=== PATIENT | female | born 1950 | race Caucasian/White ===

== ENCOUNTER → 2017-09-20 | Outpatient (CLI) | payer MEDICARE ==
[2017-09-20 07:53] LABS: BASO % 0.4 % (0.0-1.0); EOS # 0.1 10*3/uL (0.0-0.4); HEMATOCRIT 38.4 % (37.0-47.0); HEMOGLOBIN 12.7 g/dl (12.0-16.0); LYMPH # 2.1 10*3/uL (1.3-4.4); LYMPH % 42.1 % (27.0-41.0); MEAN CELL VOLUME 96.7 fl (81.0-99.0); MEAN CORPUSCULAR HGB CONC 33.1 g/dl (33.0-37.0); MEAN PLATELET VOLUME 10.5 fl (9.6-12.3); MONO # 0.6 10*3/uL (0.1-1.0); MONO % 12.3 % (3.0-9.0); NEUT # 2.2 10*3/uL (2.3-7.9); PLATELET COUNT AUTOMATED 170 10*3/uL (130-400); RED BLOOD COUNT 3.97 10*6/uL (4.10-5.10)
[2017-09-20 08:26] LABS: ALBUMIN 3.3 gm/dl (3.1-4.5); ALKALINE PHOSPHATASE 84 U/L (45-117); BILIRUBIN, DIRECT < 0.1 mg/dL (0.0-0.2); BUN 25 mg/dl (7-24); CHLORIDE 104 mmol/L (98-107); CHOLESTEROL 195 mg/dL (<200); CREATININE 1.15 mg/dL (0.55-1.02); HDL CHOLESTEROL 75 mg/dl (40-60); LDL CHOLESTEROL 98 mg/dL (9-159); PHOSPHOROUS 3.4 mg/dL (2.5-4.9); POTASSIUM 4.8 mmol/L (3.5-5.1); SGOT/AST 23 IU/L (3-35); SGPT/ALT 26 U/L (12-78); SODIUM 141 mmol/L (136-145); TRIGLYCERIDES 109 mg/dl (<150); VLDL CHOLESTEROL 22 mg/dL (6-40)
== END | disposition home or self-care (01) ==
LOC: LAB 07:13
PROVIDERS: Internal Medicine
DX: J44.9 Chronic obstructive pulmonary disease, unspecified (principal); I10 Essential (primary) hypertension; E78.5 Hyperlipidemia, unspecified

== ENCOUNTER → 2017-10-25 | Outpatient (CLI) | payer MEDICARE ==
[2017-10-25 08:14] LABS: BASO % 0.3 % (0.0-1.0); EOS # 0.1 10*3/uL (0.0-0.4); EOS % 1.9 % (1.0-4.0); HEMATOCRIT 39.4 % (37.0-47.0); LYMPH # 2.1 10*3/uL (1.3-4.4); LYMPH % 30.1 % (27.0-41.0); MEAN CELL VOLUME 96.6 fl (81.0-99.0); MEAN CORPUSCULAR HGB 31.9 pg (27.0-31.0); MEAN PLATELET VOLUME 10.7 fl (9.6-12.3); MONO # 0.9 10*3/uL (0.1-1.0); MONO % 12.9 % (3.0-9.0); NEUT # 3.8 10*3/uL (2.3-7.9); NEUT % 54.5 % (47.0-73.0); PLATELET COUNT AUTOMATED 181 10*3/uL (130-400); RED BLOOD COUNT 4.08 10*6/uL (4.10-5.10); RED CELL DISTRI WIDTH 13.1 % (0-14.5); WHITE BLOOD COUNT 6.9 10*3/uL (4.8-10.8)
[2017-10-25 08:43] LABS: ALBUMIN 3.4 gm/dl (3.1-4.5); ALKALINE PHOSPHATASE 84 U/L (45-117); BILIRUBIN, DIRECT < 0.1 mg/dL (0.0-0.2); BUN 19 mg/dl (7-24); CHLORIDE 104 mmol/L (98-107); CREATININE 1.15 mg/dL (0.55-1.02); FREE T4 0.82 ng/dl (0.76-1.46); PHOSPHOROUS 3.9 mg/dL (2.5-4.9); POTASSIUM 4.2 mmol/L (3.5-5.1); SGOT/AST 20 IU/L (3-35); SGPT/ALT 28 U/L (12-78); SODIUM 141 mmol/L (136-145); TOTAL PROTEIN 7.2 gm/dL (6.4-8.2)
[2017-10-25 12:29] LABS: VITAMIN D, 25-HYDROXY 22.4 ng/mL (30-100)
== END | disposition home or self-care (01) ==
LOC: LAB 07:24
PROVIDERS: Internal Medicine
DX: I48.0 Paroxysmal atrial fibrillation (principal); I10 Essential (primary) hypertension; R73.01 Impaired fasting glucose; M11.262 Other chondrocalcinosis, left knee; E55.9 Vitamin D deficiency, unspecified; Z79.899 Other long term (current) drug therapy

== ENCOUNTER 2018-02-04 17:43 | Emergency (ER) | payer MEDICARE ==
[~2018-02-04] VITALS: Ht 165.1 cm; Wt 63.5 kg
== END 2018-02-04 18:52 | disposition home or self-care (01) ==
LOC: ED 17:43
DX: I97.610 Postprocedural hemorrhage of a circulatory system organ or structure following a cardiac catheterization (principal)

== ENCOUNTER → 2018-06-09 | Outpatient (CLI) | payer MEDICARE ==
--- NOTE | ~2018-06-09 | EKG ---
[place], [place] ELECTROCARDIOGRAM REPORT NAME: JOSAFAT COLÓN UNIT #: [id number] ROOM: DOCTOR: JOSUE DRAFT REPORT BIRTHDATE: [birth year] [facility] Test Date: 2018-06-09 Test Time: 11:34:37 Pat Name: JOSAFAT COLÓN Department: Room: Gender: F Hair Designer: : 1950 Requested By: EDEN PETERSON Order Number: [id number] Reading MD: Alecia Lion MD Measurements Intervals [place] Rate: 67 P: LA: QRS: -85 QRSD: 148 T: 78 QT: 467 QTc: 493 Interpretive Statements Atrial fibrillation Nonspecific IVCD with marked LAD No previous ECG available for comparison Electronically Signed On 06-09-2018 13:50:52 PDT by Alecia Lion MD CM:EKGRPT:ELECTROCARDIOGRAM REPORT [id number] EDEN SALAS DRAFT REPORT EDEN PETERSON
== END | disposition home or self-care (01) ==
LOC: CARD 11:20
DX: I48.0 Paroxysmal atrial fibrillation (principal)

== ENCOUNTER → 2018-07-04 | Outpatient (CLI) | payer MEDICARE ==
[2018-07-04 11:51] LABS: BASO % 0.4 % (0.0-1.0); EOS # 0.1 10*3/uL (0.0-0.4); EOS % 1.3 % (1.0-4.0); HEMATOCRIT 40.5 % (37.0-47.0); LYMPH # 1.7 10*3/uL (1.3-4.4); LYMPH % 36.9 % (27.0-41.0); MEAN CELL VOLUME 97.1 fl (81.0-99.0); MEAN CORPUSCULAR HGB 31.2 pg (27.0-31.0); MEAN CORPUSCULAR HGB CONC 32.1 g/dl (33.0-37.0); MEAN PLATELET VOLUME 10.4 fl (9.6-12.3); MONO # 0.4 10*3/uL (0.1-1.0); MONO % 9.4 % (3.0-9.0); NEUT # 2.4 10*3/uL (2.3-7.9); NEUT % 51.8 % (47.0-73.0); PLATELET COUNT AUTOMATED 174 10*3/uL (130-400); RED BLOOD COUNT 4.17 10*6/uL (4.10-5.10); RED CELL DISTRI WIDTH 12.3 % (0-14.5); WHITE BLOOD COUNT 4.7 10*3/uL (4.8-10.8)
[2018-07-04 12:22] LABS: ALBUMIN 3.8 gm/dl (3.1-4.5); BUN 20 mg/dl (7-24); CHLORIDE 102 mmol/L (98-107); SGOT/AST 21 IU/L (3-35); SGPT/ALT 28 U/L (12-78); SODIUM 139 mmol/L (136-145); TOTAL PROTEIN 7.8 gm/dL (6.4-8.2); TRIGLYCERIDES 134 mg/dl (<150); VLDL CHOLESTEROL 27 mg/dL (6-40)
[2018-07-04 12:25] LABS: ALKALINE PHOSPHATASE 80 U/L (45-117); BILIRUBIN, DIRECT < 0.1 mg/dL (0.0-0.2); CHOLESTEROL 226 mg/dL (<200); HDL CHOLESTEROL 79 mg/dl (40-60); LDL CHOLESTEROL 120 mg/dL (9-159); PHOSPHOROUS 3.8 mg/dL (2.5-4.9)
== END | disposition home or self-care (01) ==
LOC: LAB 11:20
PROVIDERS: Internal Medicine
DX: N18.2 Chronic kidney disease, stage 2 (mild) (principal); E78.5 Hyperlipidemia, unspecified; J44.9 Chronic obstructive pulmonary disease, unspecified

== ENCOUNTER → 2018-12-25 | Outpatient (CLI) | payer MEDICARE | END | disposition home or self-care (01) | LOC: RESCLI 03:17 | DX: I48.0 Paroxysmal atrial fibrillation (principal); E78.00 Pure hypercholesterolemia, unspecified; I10 Essential (primary) hypertension; E55.9 Vitamin D deficiency, unspecified; R42 Dizziness and giddiness; Z79.899 Other long term (current) drug therapy; Z88.8 Allergy status to other drugs, medicaments and biological substances; Z90.710 Acquired absence of both cervix and uterus ==

== ENCOUNTER → 2019-10-14 | Outpatient (CLI) | payer MEDICARE | END | disposition home or self-care (01) | LOC: RESCLI 02:10 | DX: I48.0 Paroxysmal atrial fibrillation (principal); E78.00 Pure hypercholesterolemia, unspecified; I10 Essential (primary) hypertension; E55.9 Vitamin D deficiency, unspecified; Z79.899 Other long term (current) drug therapy; Z90.710 Acquired absence of both cervix and uterus; Z90.89 Acquired absence of other organs ==

== ENCOUNTER → 2019-11-06 | Outpatient (CLI) | payer MEDICARE ==
[2019-11-06 12:32] LABS: BASO % 0.7 % (0.0-1.0); EOS # 0.1 10*3/uL (0.0-0.4); EOS % 1.1 % (1.0-4.0); HEMATOCRIT 40.1 % (37.0-47.0); LYMPH # 2.1 10*3/uL (1.3-4.4); MEAN CELL VOLUME 97.6 fl (81.0-99.0); MEAN CORPUSCULAR HGB 31.6 pg (27.0-31.0); MEAN CORPUSCULAR HGB CONC 32.4 g/dl (33.0-37.0); MEAN PLATELET VOLUME 10.4 fl (9.6-12.3); MONO # 0.6 10*3/uL (0.1-1.0); MONO % 10.3 % (3.0-9.0); NEUT # 2.6 10*3/uL (2.3-7.9); NEUT % 48.7 % (47.0-73.0); PLATELET COUNT AUTOMATED 188 10*3/uL (130-400); RED BLOOD COUNT 4.11 10*6/uL (4.10-5.10); RED CELL DISTRI WIDTH 12.9 % (0-14.5); WHITE BLOOD COUNT 5.4 10*3/uL (4.8-10.8)
[2019-11-06 12:53] LABS: ALBUMIN 3.9 gm/dl (3.1-4.5); ALKALINE PHOSPHATASE 90 U/L (45-117); BILIRUBIN, DIRECT 0.1 mg/dL (0.0-0.2); BUN 14 mg/dl (7-24); CHLORIDE 108 mmol/L (98-107); CHOLESTEROL 246 mg/dL (<200); CREATININE 0.99 mg/dL (0.55-1.02); HDL CHOLESTEROL 95 mg/dl (40-60); LDL CHOLESTEROL 133 mg/dL (9-159); PHOSPHOROUS 3.4 mg/dL (2.5-4.9); POTASSIUM 3.9 mmol/L (3.5-5.1); SGOT/AST 22 IU/L (3-35); SGPT/ALT 27 U/L (12-78); SODIUM 142 mmol/L (136-145); TOTAL PROTEIN 7.8 gm/dL (6.4-8.2); TRIGLYCERIDES 88 mg/dl (<150); VLDL CHOLESTEROL 18 mg/dL (6-40)
== END | disposition home or self-care (01) ==
LOC: LAB 12:04
PROVIDERS: Internal Medicine
DX: I12.9 Hypertensive chronic kidney disease with stage 1 through stage 4 chronic kidney disease, or unspecified chronic kidney disease (principal); N18.2 Chronic kidney disease, stage 2 (mild); E78.2 Mixed hyperlipidemia

== ENCOUNTER → 2020-05-02 | Outpatient (CLI) | payer MEDICARE ==
[2020-05-02 09:35] LABS: BASO % 0.3 % (0.0-1.0); EOS # 0.2 10*3/uL (0.0-0.4); HEMATOCRIT 40.6 % (37.0-47.0); LYMPH # 2.1 10*3/uL (1.3-4.4); LYMPH % 37.2 % (27.0-41.0); MEAN CELL VOLUME 95.3 fl (81.0-99.0); MEAN CORPUSCULAR HGB 31.5 pg (27.0-31.0); MEAN PLATELET VOLUME 10.6 fl (9.6-12.3); MONO # 0.7 10*3/uL (0.1-1.0); MONO % 11.7 % (3.0-9.0); NEUT # 2.7 10*3/uL (2.3-7.9); NEUT % 47.6 % (47.0-73.0); PLATELET COUNT AUTOMATED 200 10*3/uL (130-400); RED BLOOD COUNT 4.26 10*6/uL (4.10-5.10); RED CELL DISTRI WIDTH 13.4 % (0-14.5); WHITE BLOOD COUNT 5.7 10*3/uL (4.8-10.8)
[2020-05-02 10:07] LABS: ALBUMIN 3.6 gm/dl (3.1-4.5); ALKALINE PHOSPHATASE 86 U/L (45-117); BILIRUBIN, DIRECT < 0.1 mg/dL (0.0-0.2); BUN 20 mg/dl (7-24); CHLORIDE 109 mmol/L (98-107); CHOLESTEROL 242 mg/dL (<200); CREATININE 1.15 mg/dL (0.55-1.02); HDL CHOLESTEROL 82 mg/dl (40-60); LDL CHOLESTEROL 136 mg/dL (9-159); POTASSIUM 4.1 mmol/L (3.5-5.1); SGOT/AST 27 IU/L (3-35); SGPT/ALT 32 U/L (12-78); SODIUM 139 mmol/L (136-145); TOTAL PROTEIN 7.6 gm/dL (6.4-8.2); TRIGLYCERIDES 121 mg/dl (<150); VLDL CHOLESTEROL 24 mg/dL (6-40)
== END | disposition home or self-care (01) ==
LOC: LAB 08:38
PROVIDERS: Internal Medicine
DX: I12.9 Hypertensive chronic kidney disease with stage 1 through stage 4 chronic kidney disease, or unspecified chronic kidney disease (principal); N18.2 Chronic kidney disease, stage 2 (mild); I48.0 Paroxysmal atrial fibrillation; E78.2 Mixed hyperlipidemia

== ENCOUNTER → 2020-09-01 | Outpatient (CLI) | payer MEDICARE | END | disposition home or self-care (01) | LOC: RESCLI 01:54 | PROVIDERS: ATTEND Internal Medicine Nephrology | DX: I48.0 Paroxysmal atrial fibrillation (principal); I10 Essential (primary) hypertension; E78.5 Hyperlipidemia, unspecified; E55.9 Vitamin D deficiency, unspecified; K59.00 Constipation, unspecified ==

== ENCOUNTER → 2020-12-15 | Outpatient (CLI) | payer MEDICARE | END | disposition home or self-care (01) | LOC: RESCLI 00:41 | PROVIDERS: ATTEND Internal Medicine Nephrology | DX: I48.0 Paroxysmal atrial fibrillation (principal); I10 Essential (primary) hypertension; E78.5 Hyperlipidemia, unspecified; E55.9 Vitamin D deficiency, unspecified; K59.00 Constipation, unspecified; E78.00 Pure hypercholesterolemia, unspecified; Z79.899 Other long term (current) drug therapy ==

== ENCOUNTER → 2021-01-11 | Outpatient (CLI) | payer MEDICARE ==
[2021-01-11 11:26] LABS: BASO % 0.3 % (0.0-1.0); EOS # 0.1 10*3/uL (0.0-0.4); EOS % 1.7 % (1.0-4.0); HEMATOCRIT 39.9 % (37.0-47.0); LYMPH # 1.9 10*3/uL (1.3-4.4); LYMPH % 28.7 % (27.0-41.0); MEAN CELL VOLUME 95.2 fl (81.0-99.0); MEAN CORPUSCULAR HGB 30.8 pg (27.0-31.0); MEAN CORPUSCULAR HGB CONC 32.3 g/dl (33.0-37.0); MEAN PLATELET VOLUME 10.3 fl (9.6-12.3); MONO # 0.7 10*3/uL (0.1-1.0); MONO % 10.4 % (3.0-9.0); NEUT # 3.9 10*3/uL (2.3-7.9); NEUT % 58.7 % (47.0-73.0); PLATELET COUNT AUTOMATED 202 10*3/uL (130-400); RED BLOOD COUNT 4.19 10*6/uL (4.10-5.10); RED CELL DISTRI WIDTH 13.5 % (0-14.5); WHITE BLOOD COUNT 6.6 10*3/uL (4.8-10.8)
[2021-01-11 11:43] LABS: ALBUMIN 3.5 gm/dl (3.1-4.5); ALKALINE PHOSPHATASE 152 U/L (45-117); BILIRUBIN, DIRECT 0.1 mg/dL (0.0-0.2); BUN 16 mg/dl (7-24); CHLORIDE 108 mmol/L (98-107); CHOLESTEROL 208 mg/dL (<200); CREATININE 0.91 mg/dL (0.55-1.02); HDL CHOLESTEROL 81 mg/dl (40-60); LDL CHOLESTEROL 95 mg/dL (9-159); POTASSIUM 4.7 mmol/L (3.5-5.1); SGOT/AST 33 IU/L (3-35); SGPT/ALT 80 U/L (12-78); SODIUM 142 mmol/L (136-145); THYROXINE (T4) TOTAL 7.3 ug/dl (4.8-13.9); TOTAL PROTEIN 7.4 gm/dL (6.4-8.2); TRIGLYCERIDES 158 mg/dl (<150); VLDL CHOLESTEROL 32 mg/dL (6-40)
== END | disposition home or self-care (01) ==
LOC: LAB 10:48
PROVIDERS: ATTEND Internal Medicine
DX: I10 Essential (primary) hypertension (principal); E78.2 Mixed hyperlipidemia; I48.0 Paroxysmal atrial fibrillation

== ENCOUNTER → 2021-05-05 | Outpatient (CLI) | payer MEDICARE ==
[2021-05-05 12:10] LABS: ALBUMIN 3.5 gm/dl (3.1-4.5); BILIRUBIN, DIRECT 0.2 mg/dL (0.0-0.2); TOTAL PROTEIN 7.9 gm/dL (6.4-8.2)
== END | disposition home or self-care (01) ==
LOC: RESCLI 01:03
PROVIDERS: Hospitalist; ATTEND Internal Medicine
DX: I10 Essential (primary) hypertension (principal); I48.0 Paroxysmal atrial fibrillation; E55.9 Vitamin D deficiency, unspecified; E78.5 Hyperlipidemia, unspecified; K59.00 Constipation, unspecified; R47.01 Aphasia; E53.8 Deficiency of other specified B group vitamins; L65.9 Nonscarring hair loss, unspecified; E78.00 Pure hypercholesterolemia, unspecified; J45.20 Mild intermittent asthma, uncomplicated; Z79.899 Other long term (current) drug therapy

== ENCOUNTER → 2021-05-12 | Outpatient (CLI) | payer MEDICARE | END | disposition home or self-care (01) | LOC: US 10:45 | PROVIDERS: ATTEND Hospitalist | DX: R74.01 Elevation of levels of liver transaminase levels (principal) ==

== ENCOUNTER → 2021-05-23 | Outpatient (CLI) | payer MEDICARE ==
[2021-05-23 13:48] LABS: ALBUMIN 3.3 gm/dl (3.1-4.5); BILIRUBIN, DIRECT 0.1 mg/dL (0.0-0.2); TOTAL PROTEIN 7.5 gm/dL (6.4-8.2)
== END | disposition home or self-care (01) ==
LOC: LAB 11:44
PROVIDERS: ATTEND Hospitalist
DX: R74.01 Elevation of levels of liver transaminase levels (principal)

== ENCOUNTER → 2021-06-05 | Outpatient (CLI) | payer MEDICARE ==
[2021-06-05 13:07] LABS: ALBUMIN 3.6 gm/dl (3.1-4.5)
[2021-06-05 13:09] LABS: TOTAL PROTEIN 7.5 gm/dL (6.4-8.2)
== END | disposition home or self-care (01) ==
LOC: LAB 12:13
PROVIDERS: ATTEND Hospitalist
DX: R74.01 Elevation of levels of liver transaminase levels (principal)

== ENCOUNTER → 2021-09-13 | Outpatient (CLI) | payer MEDICARE ==
[2021-09-13 13:59] LABS: ALBUMIN 3.8 gm/dl (3.1-4.5); BUN 19 mg/dl (7-24); CHLORIDE 105 mmol/L (98-107); CREATININE 1.02 mg/dL (0.55-1.02); SGOT/AST 25 IU/L (3-35); SGPT/ALT 38 U/L (12-78); SODIUM 143 mmol/L (136-145); THYROXINE (T4) TOTAL 7.6 ug/dl (4.8-13.9); TOTAL PROTEIN 7.9 gm/dL (6.4-8.2)
[2021-09-13 14:01] LABS: ALKALINE PHOSPHATASE 104 U/L (45-117)
== END | disposition home or self-care (01) ==
LOC: LAB 12:50
PROVIDERS: ATTEND Internal Medicine
DX: I12.9 Hypertensive chronic kidney disease with stage 1 through stage 4 chronic kidney disease, or unspecified chronic kidney disease (principal); N18.2 Chronic kidney disease, stage 2 (mild); I48.0 Paroxysmal atrial fibrillation; E78.2 Mixed hyperlipidemia

== ENCOUNTER → 2021-12-21 | Outpatient (CLI) | payer MEDICARE | END | disposition home or self-care (01) | LOC: COVID19 15:06 | PROVIDERS: ATTEND Podiatrist Foot & Ankle Surgery | DX: U07.1 COVID-19 (principal) ==

== ENCOUNTER → 2022-05-11 | Outpatient (CLI) | payer MEDICARE ==
[2022-05-11 10:55] LABS: HEMATOCRIT 38.5 % (37.0-47.0); MEAN CELL VOLUME 93.9 fl (81.0-99.0); MEAN PLATELET VOLUME 9.7 fl (9.6-12.3); RED BLOOD COUNT 4.1 10*6/uL (4.10-5.10); RED CELL DISTRI WIDTH 13.1 % (0-14.5); WHITE BLOOD COUNT 4.6 10*3/uL (4.8-10.8)
[2022-05-11 11:21] LABS: BUN 20 mg/dl (7-24); CHLORIDE 108 mmol/L (98-107); CHOLESTEROL 210 mg/dL (<200); CREATININE 1.07 mg/dL (0.55-1.02); POTASSIUM 4.5 mmol/L (3.5-5.1); SGOT/AST 32 IU/L (3-35); SGPT/ALT 39 U/L (12-78); SODIUM 142 mmol/L (136-145); TOTAL PROTEIN 6.8 gm/dL (6.4-8.2); TRIGLYCERIDES 66 mg/dl (<150)
[2022-05-11 11:26] LABS: ALKALINE PHOSPHATASE 96 U/L (45-117); LDL CHOLESTEROL 118 mg/dL (9-159)
== END | disposition home or self-care (01) ==
LOC: LAB 10:36
PROVIDERS: ATTEND Internal Medicine
DX: U07.1 COVID-19 (principal); I12.9 Hypertensive chronic kidney disease with stage 1 through stage 4 chronic kidney disease, or unspecified chronic kidney disease; N18.2 Chronic kidney disease, stage 2 (mild); I48.0 Paroxysmal atrial fibrillation; E78.2 Mixed hyperlipidemia

== ENCOUNTER → 2022-08-21 | Outpatient (CLI) | payer MEDICARE ==
[2022-08-21 16:23] LABS: BUN 18 mg/dl (7-24); CHLORIDE 109 mmol/L (98-107); CREATININE 0.97 mg/dL (0.55-1.02); SODIUM 143 mmol/L (136-145)
== END | disposition home or self-care (01) ==
LOC: RESCLI 14:53 → LAB 14:53
PROVIDERS: Student in an Organized Health Care Education/Training Program; ATTEND Internal Medicine
DX: I10 Essential (primary) hypertension (principal); I48.0 Paroxysmal atrial fibrillation; E55.9 Vitamin D deficiency, unspecified; E78.00 Pure hypercholesterolemia, unspecified; E53.8 Deficiency of other specified B group vitamins; L65.9 Nonscarring hair loss, unspecified; K59.00 Constipation, unspecified; Z79.899 Other long term (current) drug therapy; Z98.890 Other specified postprocedural states; Z90.710 Acquired absence of both cervix and uterus; Z79.84 Long term (current) use of oral hypoglycemic drugs

== ENCOUNTER → 2023-01-09 | Outpatient (CLI) | payer MEDICARE ==
[2023-01-09 14:15] LABS: BASO % 0.6 % (0.0-1.0); EOS % 0.8 % (1.0-4.0); HEMATOCRIT 40.1 % (37.0-47.0); LYMPH # 2.1 10*3/uL (1.3-4.4); LYMPH % 41.1 % (27.0-41.0); MEAN CELL VOLUME 96.6 fl (81.0-99.0); MEAN CORPUSCULAR HGB 32.3 pg (27.0-31.0); MEAN CORPUSCULAR HGB CONC 33.4 g/dl (33.0-37.0); MEAN PLATELET VOLUME 10.1 fl (9.6-12.3); MONO # 0.5 10*3/uL (0.1-1.0); MONO % 10.5 % (3.0-9.0); NEUT # 2.4 10*3/uL (2.3-7.9); NEUT % 46.8 % (47.0-73.0); PLATELET COUNT AUTOMATED 187 10*3/uL (130-400); RED BLOOD COUNT 4.15 10*6/uL (4.10-5.10); RED CELL DISTRI WIDTH 13.4 % (0-14.5)
[2023-01-09 14:30] LABS: BUN 20 mg/dl (9-23); CHLORIDE 104 mmol/L (98-107); CHOLESTEROL 207 mg/dL (<200); LDL CHOLESTEROL 114 mg/dL (9-159); TRIGLYCERIDES 68 mg/dl (<150)
[2023-01-09 14:31] LABS: ALKALINE PHOSPHATASE 91 U/L (46-116); BUN 21 mg/dl (9-23); CHLORIDE 104 mmol/L (98-107); POTASSIUM 4.1 mmol/L (3.4-5.1); SGPT/ALT 30 U/L (10-49); TOTAL PROTEIN 6.7 gm/dL (6.0-8.0)
== END | disposition home or self-care (01) ==
LOC: LAB 13:56
PROVIDERS: Internal Medicine; ATTEND Internal Medicine Clinical Cardiac Electrophysiology
DX: I12.9 Hypertensive chronic kidney disease with stage 1 through stage 4 chronic kidney disease, or unspecified chronic kidney disease (principal); N18.2 Chronic kidney disease, stage 2 (mild); E78.2 Mixed hyperlipidemia

== ENCOUNTER → 2023-05-02 | Outpatient (CLI) | payer MEDICARE | END | disposition home or self-care (01) | LOC: RAD 04-30 17:59 | PROVIDERS: ATTEND Chiropractor | DX: M47.816 Spondylosis without myelopathy or radiculopathy, lumbar region (principal); M16.0 Bilateral primary osteoarthritis of hip; M25.752 Osteophyte, left hip; M25.751 Osteophyte, right hip ==

== ENCOUNTER → 2023-07-04 | Outpatient (CLI) | payer MEDICARE ==
[2023-07-04 11:36] LABS: BASO % 0.6 % (0.0-1.0); EOS % 0.8 % (1.0-4.0); HEMATOCRIT 39.5 % (37.0-47.0); LYMPH % 41.3 % (27.0-41.0); MEAN CELL VOLUME 95.9 fl (81.0-99.0); MEAN CORPUSCULAR HGB 32.3 pg (27.0-31.0); MEAN CORPUSCULAR HGB CONC 33.7 g/dl (33.0-37.0); MEAN PLATELET VOLUME 9.8 fl (9.6-12.3); MONO # 0.6 10*3/uL (0.1-1.0); MONO % 11.4 % (3.0-9.0); NEUT # 2.2 10*3/uL (2.3-7.9); NEUT % 45.7 % (47.0-73.0); PLATELET COUNT AUTOMATED 178 10*3/uL (130-400); RED BLOOD COUNT 4.12 10*6/uL (4.10-5.10); WHITE BLOOD COUNT 4.8 10*3/uL (4.8-10.8)
[2023-07-04 12:15] LABS: ALKALINE PHOSPHATASE 101 U/L (46-116); BUN 21 mg/dl (9-23); CHLORIDE 106 mmol/L (98-107); CHOLESTEROL 223 mg/dL (<200); LDL CHOLESTEROL 127 mg/dL (9-159); POTASSIUM 4.1 mmol/L (3.4-5.1); SGPT/ALT 30 U/L (10-49); TOTAL PROTEIN 7.1 gm/dL (6.0-8.0); TRIGLYCERIDES 95 mg/dl (<150)
== END | disposition home or self-care (01) ==
LOC: RESCLI 00:57
PROVIDERS: Internal Medicine; ATTEND Internal Medicine
DX: I12.9 Hypertensive chronic kidney disease with stage 1 through stage 4 chronic kidney disease, or unspecified chronic kidney disease (principal); N18.2 Chronic kidney disease, stage 2 (mild); E78.2 Mixed hyperlipidemia; I48.91 Unspecified atrial fibrillation; Z79.899 Other long term (current) drug therapy; E78.00 Pure hypercholesterolemia, unspecified; M54.30 Sciatica, unspecified side; M16.9 Osteoarthritis of hip, unspecified; I48.0 Paroxysmal atrial fibrillation; L65.9 Nonscarring hair loss, unspecified; E55.9 Vitamin D deficiency, unspecified; K59.00 Constipation, unspecified; J45.20 Mild intermittent asthma, uncomplicated; Z82.49 Family history of ischemic heart disease and other diseases of the circulatory system; Z98.890 Other specified postprocedural states

== ENCOUNTER → 2023-07-10 | Outpatient (CLI) | payer MEDICARE | END | disposition home or self-care (01) | LOC: CT 00:59 | PROVIDERS: ATTEND Internal Medicine | DX: M16.11 Unilateral primary osteoarthritis, right hip (principal); M25.751 Osteophyte, right hip; M47.817 Spondylosis without myelopathy or radiculopathy, lumbosacral region; M48.061 Spinal stenosis, lumbar region without neurogenic claudication; M51.36 Other intervertebral disc degeneration, lumbar region ==

== ENCOUNTER → 2023-07-18 | Outpatient (CLI) | payer MEDICARE | END | disposition home or self-care (01) | LOC: RESCLI 00:07 | PROVIDERS: ATTEND Family Medicine | DX: M99.83 Other biomechanical lesions of lumbar region (principal); M48.061 Spinal stenosis, lumbar region without neurogenic claudication; I48.0 Paroxysmal atrial fibrillation; J45.20 Mild intermittent asthma, uncomplicated; E78.5 Hyperlipidemia, unspecified; M16.9 Osteoarthritis of hip, unspecified; Z79.01 Long term (current) use of anticoagulants; Z79.899 Other long term (current) drug therapy ==

== ENCOUNTER → 2023-07-23 | Outpatient (CLI) | payer MEDICARE | END | disposition home or self-care (01) | LOC: MRI 00:19 | PROVIDERS: ATTEND Student in an Organized Health Care Education/Training Program | DX: M51.37 Other intervertebral disc degeneration, lumbosacral region (principal); M99.83 Other biomechanical lesions of lumbar region; M48.07 Spinal stenosis, lumbosacral region; M47.817 Spondylosis without myelopathy or radiculopathy, lumbosacral region ==

== ENCOUNTER → 2024-11-05 | Outpatient (CLI) | payer MEDICARE | END | disposition home or self-care (01) | LOC: RESCLI 00:35 | PROVIDERS: ATTEND Student in an Organized Health Care Education/Training Program | DX: E78.5 Hyperlipidemia, unspecified (principal); E03.9 Hypothyroidism, unspecified; I10 Essential (primary) hypertension; I48.0 Paroxysmal atrial fibrillation; M48.061 Spinal stenosis, lumbar region without neurogenic claudication; E55.9 Vitamin D deficiency, unspecified; E53.8 Deficiency of other specified B group vitamins; L65.9 Nonscarring hair loss, unspecified; K59.00 Constipation, unspecified; J45.20 Mild intermittent asthma, uncomplicated; Z12.11 Encounter for screening for malignant neoplasm of colon; Z98.890 Other specified postprocedural states; Z79.01 Long term (current) use of anticoagulants; Z79.899 Other long term (current) drug therapy; Z82.49 Family history of ischemic heart disease and other diseases of the circulatory system ==

== ENCOUNTER → 2024-12-22 | Outpatient (CLI) | payer MEDICARE ==
[2024-12-22 13:05] LABS: BASO % 0.4 % (0.0-1.0); EOS # 0.1 10*3/uL (0.0-0.4); EOS % 1.3 % (1.0-4.0); MEAN CELL VOLUME 95.5 fl (81.0-99.0); MEAN CORPUSCULAR HGB 31.5 pg (27.0-31.0); MEAN PLATELET VOLUME 10.1 fl (9.6-12.3); MONO # 0.6 10*3/uL (0.1-1.0); MONO % 10.3 % (3.0-9.0); NEUT # 2.4 10*3/uL (2.3-7.9); NEUT % 43.5 % (47.0-73.0); PLATELET COUNT AUTOMATED 183 10*3/uL (130-400); RED BLOOD COUNT 4.19 10*6/uL (4.10-5.10); RED CELL DISTRI WIDTH 13.2 % (0-14.5); WHITE BLOOD COUNT 5.4 10*3/uL (4.8-10.8)
[2024-12-22 13:59] LABS: ALKALINE PHOSPHATASE 106 U/L (46-116); BUN 20 mg/dl (9-23); CHLORIDE 103 mmol/L (98-107); CHOLESTEROL 218 mg/dL (<200); FREE T4 0.89 ng/dl (0.89-1.76); LDL CHOLESTEROL 126 mg/dL (9-159); POTASSIUM 4.4 mmol/L (3.4-5.1); SGPT/ALT 26 U/L (5-49); TOTAL PROTEIN 7.3 gm/dL (6.0-8.0); TRIGLYCERIDES 81 mg/dl (<150)
== END | disposition home or self-care (01) ==
LOC: LAB 12:38
PROVIDERS: ATTEND Student in an Organized Health Care Education/Training Program
DX: I10 Essential (primary) hypertension (principal); E03.9 Hypothyroidism, unspecified; I48.0 Paroxysmal atrial fibrillation; E55.9 Vitamin D deficiency, unspecified

== ENCOUNTER → 2025-04-23 | Outpatient (CLI) | payer MEDICARE ==
[2025-04-23 11:38] LABS: BASO % 0.4 % (0.0-1.0); EOS # 0.1 10*3/uL (0.0-0.4); EOS % 2.2 % (1.0-4.0); HEMATOCRIT 39.4 % (37.0-47.0); MEAN PLATELET VOLUME 10.1 fl (9.6-12.3); MONO # 0.5 10*3/uL (0.1-1.0); MONO % 11.5 % (3.0-9.0); NEUT # 2.3 10*3/uL (2.3-7.9); PLATELET COUNT AUTOMATED 179 10*3/uL (130-400); RED BLOOD COUNT 4.06 10*6/uL (4.10-5.10); WHITE BLOOD COUNT 4.5 10*3/uL (4.8-10.8)
[2025-04-23 12:14] LABS: ALKALINE PHOSPHATASE 109 U/L (46-116); BUN 20 mg/dl (9-23); CHLORIDE 103 mmol/L (98-107); CHOLESTEROL 199 mg/dL (<200); LDL CHOLESTEROL 105 mg/dL (9-159); POTASSIUM 4.4 mmol/L (3.4-5.1); SGPT/ALT 26 U/L (5-49); TOTAL PROTEIN 6.7 gm/dL (6.0-8.0); TRIGLYCERIDES 81 mg/dl (<150)
== END | disposition home or self-care (01) ==
LOC: LAB 10:45
PROVIDERS: ATTEND Internal Medicine
DX: I12.9 Hypertensive chronic kidney disease with stage 1 through stage 4 chronic kidney disease, or unspecified chronic kidney disease (principal); N18.2 Chronic kidney disease, stage 2 (mild); E78.2 Mixed hyperlipidemia

== ENCOUNTER → 2025-09-02 | Outpatient (CLI) | payer MEDICARE ==
[2025-09-02 12:31] LABS: BASO # 0.0 10*3/uL (0.0-0.1); BASO % 0.6 % (0.0-1.0); EOS # 0.1 10*3/uL (0.0-0.4); EOS % 1.0 % (1.0-4.0); MEAN CELL VOLUME 95.9 fl (81.0-99.0); MEAN CORPUSCULAR HGB 31.9 pg (27.0-31.0); MEAN PLATELET VOLUME 9.9 fl (9.6-12.3); MONO # 0.6 10*3/uL (0.1-1.0); MONO % 11.6 % (3.0-9.0); NEUT # 2.2 10*3/uL (2.3-7.9); NEUT % 45.9 % (47.0-73.0); NUCLEATED RED BLOOD CELL 0.0 % (0.0-0.0); NUCLEATED RED BLOOD CELL 0.0 10*3/uL (0.0-0.0); PLATELET COUNT AUTOMATED 191 10*3/uL (130-400); RED CELL DISTRI WIDTH 12.9 % (0-14.5)
[2025-09-02 12:56] LABS: BUN 21 mg/dl (9-23); FREE T4 1.03 ng/dl (0.89-1.76); LDL CHOLESTEROL 132 mg/dL (9-159); SGPT/ALT 18 U/L (5-49); T3 UPTAKE 30.1 % (22.4-36.7); THYROXINE (T4) TOTAL 5.1 ug/dl (4.5-10.9)
== END | disposition home or self-care (01) ==
LOC: LAB 12:00
PROVIDERS: ATTEND Internal Medicine
DX: J44.9 Chronic obstructive pulmonary disease, unspecified (principal); I12.9 Hypertensive chronic kidney disease with stage 1 through stage 4 chronic kidney disease, or unspecified chronic kidney disease; E11.22 Type 2 diabetes mellitus with diabetic chronic kidney disease; N18.2 Chronic kidney disease, stage 2 (mild); E78.5 Hyperlipidemia, unspecified; I48.91 Unspecified atrial fibrillation